=== PATIENT | male | born 1980 | race Caucasian/White ===

== ENCOUNTER 2022-03-06 20:29 | Emergency (ER) | payer OTHER ==
[2022-03-06] MEDS ORDERED: Lidocaine 1% 5 ML VIAL INJECT ONE (21:22)
[2022-03-06] MEDS ORDERED: Bacitracin Oint 1 GM U/D Packet TOP ONE (21:22)
== END 2022-03-06 21:58 | disposition home or self-care (01) ==
LOC: JP.ED 20:29
DX: S61.211A Laceration without foreign body of left index finger without damage to nail, initial encounter (principal); W26.8XXA Contact with other sharp object(s), not elsewhere classified, initial encounter
CPT/HCPCS: 12001; 99281; 99282-25